=== PATIENT | female | born 1985 | race Caucasian/White ===

== ENCOUNTER → 2018-01-16 | Outpatient (CLI) | payer OTHER ==
--- NOTE | 2018-01-17 07:21 | US ---
EXAMINATION TYPE: US pelvis complete transvag DATE OF EXAM: 01/16/2018 COMPARISON: SEVERAL US'S 09/29/2014 CLINICAL HISTORY: R10.2 Pelvic pain. felt enlarged left ovary during pelvic TECHNIQUE: Transvaginal (TV) and Transabdominal (TA) . Transabdominal sonographic images of the pel vis were acquired. Transvaginal sonographic images were medically necessary to better assess the fol lowing anatomy: calcs seen near endometrium Date of LMP: 01/03/2018 EXAM MEASUREMENTS: Uterus: 10.3 x 4.1 x 6.6 cm Endometrial Stripe: 0.9 cm Right Ovary: 3.5 x 3.3 x 2.5 cm Left Ovary: 3.1 x 2.7 x 2.1 cm 1. Uterus: Anteverted there are some calcification seen in myometrium near endo as seen on prior e xams 2. Endometrium: wnl 3. Right Ovary: dominant follicle measures 1.9 x 1.7 x 1.9 cm. 4. Left Ovary: wnl 5. Bilateral Adnexa: wnl 6. Posterior cul-de-sac: no free fluid IMPRESSION: 1. Nonspecific myometrial calcifications. 2. Dominant right ovarian follicle.
== END | disposition home or self-care (01) ==
LOC: RADUSWWP 16:18
PROVIDERS: ATTEND Obstetrics & Gynecology
DX: N85.8 Other specified noninflammatory disorders of uterus (principal)
CPT/HCPCS: 76830; 76856

== ENCOUNTER → 2018-10-17 | Outpatient (CLI) | payer OTHER ==
--- NOTE | 2018-10-17 16:03 | XR ---
EXAMINATION TYPE: XR forearm RT, XR wrist complete RT, XR hand complete RT DATE OF EXAM: 10/17/2018 CLINICAL HISTORY: Right upper extremity pain radiating from shoulder to the third digit with numbness of the third digit on the right. TECHNIQUE: Two views of the right forearm are obtained. 3 views of the right hand and wrist were also obtained. Scaphoid view was also obtained. COMPARISON: None. FINDINGS: There is no acute fracture or dislocation seen in the right radius or ulna. The right elbow and wris t joints appear within normal limits. The overlying soft tissue appears within normal limits. There is no acute fracture/dislocation evident in the right hand. Flexion of the distal interphalange al joint slightly limits evaluation. The joint spaces in the right hand appear within normal limits. The overlying soft tissue appears unremarkable. There is no acute fracture/dislocation evident in the right wrist. The joint spaces in the right wri st appear within normal limits. The overlying soft tissue appears unremarkable. IMPRESSION: 1. No acute fracture or dislocation seen in the right radius or ulna. 2. No acute fracture or dislocation in the right wrist nor hand. Particularly the third digit is unre markable.
== END | disposition home or self-care (01) ==
LOC: RADXRMAIN 15:33
PROVIDERS: ATTEND Emergency Medicine
DX: S63.501A Unspecified sprain of right wrist, initial encounter (principal); S67.21XA Crushing injury of right hand, initial encounter

== ENCOUNTER → 2018-10-23 | Outpatient (CLI) | payer OTHER ==
--- NOTE | 2018-10-23 17:45 | XR ---
PROCEDURE: XR wrist complete RT - 4V DATE AND TIME: 10/23/2018 5:34 PM CLINICAL INDICATION: PHH; S63.501D TECHNIQUE: Department protocol COMPARISON: 10/17/2018 FINDINGS: There is no fracture or malalignment. The soft tissues are unremarkable. IMPRESSION: NO ACUTE PROCESS.
== END | disposition home or self-care (01) ==
LOC: RADXRMAIN 16:57
PROVIDERS: ATTEND Emergency Medicine
DX: S63.501D Unspecified sprain of right wrist, subsequent encounter (principal)

== ENCOUNTER → 2018-11-21 | Outpatient (CLI) | payer OTHER ==
--- NOTE | 2018-11-23 05:17 | FL ---
EXAMINATION TYPE: Right wrist fluoroscopic-guided arthrogram injection. DATE OF EXAM: 11/21/2018 HISTORY: 33-year-old female crush injury, limited range of motion and pain. PROCEDURES: 1. Right wrist fluoroscopy. 2. Right wrist arthrogram. TECHNIQUE: The procedure, risks, and alternatives, were discussed with the patient, who requested that umberto grissom The consent form was signed, and teach-back occurred. The site/side of the procedure was marked with a line with participation by the patient. The accompan frederick paperwork was verified for consistency. A directed history and physical exam was performed prior to the procedure. A critical pause was perfo rmed with assisting personnel just prior to the procedure, and the patient's identity was confirmed u sing 2 identifiers. Imaging guidance was utilized to select the precise skin entry point just prior to the procedure. The right wrist was prepped and draped in the usual sterile fashion and local 1% lidocaine anesthesia was instilled. Under fluoroscopic guidance, a 25 gauge needle was introduced into the dorsal radial scaphoid joint and appropriate needle tip position was confirmed after a small amount of contrast in jection. There is difficulty in accessing the joint space due to an exaggerated resistance to flexing the wrist. Approximately 2 mL of a mixture of Isovue-300 iodinated contrast, sterile saline, and Gadavist was in jected into the right wrist joint. The needle was then removed. The patient tolerated the procedure w ell. There was no immediate complication. After the procedure, the patient's condition was unchanged. Estimated blood loss was minimal. Patient was advised on routine postprocedure precautions and monitoring for signs of infection. IMPRESSION: Technically successful right wrist arthrogram injection for MRI. No immediate complication.
--- NOTE | 2018-11-24 22:23 | MR ---
EXAMINATION TYPE: MR wrist arthrogram RT w con DATE OF EXAM: 11/21/2018 COMPARISON: Radiographs 10/23/2018 HISTORY: 33-year-old female crush injury with pain and limited range of motion Technique: Multiplanar, multisequence images of the right wrist were obtained after intra-articular a dministration of a gadolinium mixture. Refer to arthrogram injection report of the same day for furth er details. FINDINGS: There is adequate contrast distention of the wrist joint with some decompression of contrast along th e medial aspect of the wrist. There is mild globular intermediate signal of the volar scapholunate ligament. No tyrone scapholunate lunate ligament tear is seen though minute contrast has made its way into the midcarpal compartment. The lunotriquetral ligament is intact. Overall cartilage is maintained without evidence for bony erosions. Multilocular ganglion cyst along the radial volar aspect of the hand proximal to the base of the seco nd metacarpal measuring 1.8 cm long by 4 mm wide and 5 mm AP dimension. This does not fill with contr ast. 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 The dorsal extensor and volar flexor tendons are ot herwise within normal limits. Some mild iatrogenic contrast extends along the second and third dorsal compartments. The bifid median nerve is normal caliber with cross-sectional area of 11.8 sq mm. There is some heterogeneous signal involving the dorsal radial ulnar ligament. The triangular fibroca rtilage otherwise remains intact. Distal radioulnar joint is intact. No abnormal contrast extension i nto the distal radioulnar joint. The visualized musculature and osseous structures are within normal limits. IMPRESSION: 1. There is some heterogeneous signal involving the volar portion of the scapholunate ligament sugges ting a mild sprain. 2. In addition, minute contrast has made its way to the mid carpal compartment. There may be a tiny p erforation in the proximal portion of the scapholunate ligament. No sizable tear of the proximal port ion or disruption of the dorsal portion of the ligament is seen. 3. Additional heterogeneous signal involving the dorsal radioulnar ligament suggests a mild sprain or partial tear. No other TFC tear or abnormal extension of contrast into the DRUJ. 4. Multilocular ganglion cyst along the radial volar aspect of the hand extending proximal to the bas e of the second metacarpal (1.8 x 0.4 x 0.5 cm). 5. 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
== END | disposition home or self-care (01) ==
LOC: RADFLMAIN 12:45
PROVIDERS: ATTEND Emergency Medicine
DX: M67.441 Ganglion, right hand (principal); S67.21XD Crushing injury of right hand, subsequent encounter
CPT/HCPCS: 25246; 73115; 73222; A9585; Q9967

== ENCOUNTER 2019-04-17 23:39 | Emergency (ER) | payer OTHER ==
[2019-04-17 23:59] VITALS: BP 128/64; PULSE 106; RESP 18; TEMP 98.1
[2019-04-18] MEDS ORDERED: ACET/COD 300 MG/30 MG STARTER PACK 6 TAB BTL PO STA (00:10)
[2019-04-18] MEDS ORDERED: LIDOCAINE 1% INJ 10MG/ML (20 ML MDV) SQ ONE (00:10)
--- NOTE | 2019-04-18 00:12 | ED ---
Wound/Laceration HPI - General Source: patient Mode of arrival: wheelchair Limitations: no limitations <Marychuy Wren - Last Filed: 04/18/19 02:04> <Xavier Batista - Last Filed: 04/18/19 06:16> - General Chief Complaint: Wound/Laceration Stated Complaint: Lac Lft Thigh Time Seen by Provider: 04/17/19 23:58 - History of Present Illness Initial Comments: 33-year-old female patient presents to the emergency department today for evaluation of laceration to the left thigh. Patient states that she cut her leg on a metal piece they were using a drywall. States that they were having difficulty getting the bleeding to stop soap presented here for further evaluation. Patient states her last tetanus vaccine was one year ago. Denies taking anything for pain. Symptoms. She denies any numbness or tingling to her extremity. Denies any other injuries. Patient denies any headache, neck pain, back pain, chest pain, shortness of breath, dizziness, weakness, abdominal pain, nausea, vomiting, or difficulties with bowel movements or urination. (Marychuy Wren) - Related Data Home Medications Medication Instructions Recorded Confirmed Hair, Skin And Nails 1 tab PO DAILY 02/02/16 02/02/16 Previous Rx's Medication Instructions Recorded Diazepam [Valium] 5 mg PO BID PRN #8 tab 02/03/16 Ibuprofen [Motrin] 800 mg PO Q8HR PRN #21 tab 02/03/16 Allergies Allergy/AdvReac Type Severity Reaction Status Date / Time Penicillins Allergy Severe Anaphylaxis Verified 04/17/19 23:59 amoxicillin Allergy Rash/Hives Verified 04/17/19 23:59 Review of Systems ROS Other: All systems not noted in ROS Statement are negative. <Marychuy Wren - Last Filed: 04/18/19 02:04> ROS Other: All systems not noted in ROS Statement are negative. <Xavier Batista - Last Filed: 04/18/19 06:16> ROS Statement: Those systems with pertinent positive or pertinent negative responses have been documented in the HPI. Past Medical History Past Medical History: No Reported History Additional Past Medical History / Comment(s): cervival cancer, History of Any Multi-Drug Resistant Organisms: None Reported Past Surgical History: Section Additional Past Surgical History / Comment(s): D&C, 1 , Past Psychological History: ADD/ADHD, Anxiety, Depression Smoking Status: Current every day smoker Past Alcohol Use History: Occasional Past Drug Use History: Marijuana <Marychuy Wren M - Last Filed: 04/18/19 02:04> General Exam Limitations: no limitations General appearance: alert, in no apparent distress, other (This is a well-dev eloped, well-nourished adult female patient in no acute distress. Vital signs upon presentation are temperature 98.1F, pulse 106, respirations 18, blood pressure 128/64, pulse ox 95% on room air.) Eye exam: Present: normal appearance, PERRL, EOMI. Absent: scleral icterus, conjunctival injection, periorbital swelling ENT exam: Present: normal exam, normal oropharynx, mucous membranes moist Respiratory exam: Present: normal lung sounds bilaterally. Absent: respiratory distress, wheezes, rales, rhonchi, stridor Cardiovascular Exam: Present: regular rate, normal rhythm, normal heart sounds. Absent: systolic murmur, diastolic murmur, rubs, gallop, clicks Extremities exam: Present: full ROM, normal capillary refill, other (There is a 4cm laceration to the left lateral thigh. There is active bleeding and surrounding hematoma. skin is otherwise pink, warm, dry. Cap refills less than 3 seconds. Pedal and posttibial pulses are 2+ and equal bilaterally.). Absent: tenderness, pedal edema, joint swelling, calf tenderness Neurological exam: Present: alert, oriented X3, CN II-XII intact Psychiatric exam: Present: normal affect, normal mood Skin exam: Present: warm, dry, intact, normal color. Absent: rash <Marychuy Wren M - Last Filed: 04/18/19 02:04> Course Vital Signs 04/17/19 23:54 Temperature 98.1 F Pulse Rate 106 H Respiratory 18 Rate Blood Pressure 128/64 O2 Sat by Pulse 95 Oximetry Procedures - Laceration Laceration #1 Consent Obtained: verbal consent Indication: laceration Site: lower extremity Size (cm): 4 Description: linear Depth: simple, single layer (exposed adipose tissue) Anesthetic Used: lidocaine 1%, with epi Anesthesia Technique: local infiltration Amount (mls): 10 Pre-repair: wound explored Type of Sutures: nylon, vicryl Size of Sutures: 4-0 (4 nylon, 2 vicryl) Number of Sutures: 6 Technique: simple, interrupted Patient Tolerated Procedure: well, no complications <Marychuy Wren - Last Filed: 04/18/19 02:04> Medical Decision Making <Marychuy Wren - Last Filed: 04/18/19 02:04> <Xavier Batista - Last Filed: 04/18/19 06:16> - Medical Decision Making 33-year-old female patient presents to the emergency department today for evaluation of left lateral thigh laceration. Physical examination did reveal a deep laceration through the adipose tissue to the left thigh. There is active bleeding. There is 12 and of hematoma. Lidocaine with epinephrine was injected to slow bleeding. Did perform double layer closure of the wound. Was able to get bleeding under control. Pressure dressing was applied. She was discharged home to follow-up with her primary care physician for recheck in one to 2 days. She is instructed to return in 10-14 days for suture removal. She was educated regarding signs or symptoms of infection. Return parameters discussed in detail. They verbalize understanding and agree with this plan for (Marychuy Wren) I saw this patient in conjunction with the physician glass ribbon machine operator assistant. I performed independent history and physical exam. Agree with case management. (Xavier Batista) Disposition Is patient prescribed a controlled substance at d/c from ED?: No <Marychuy Wren - Last Filed: 04/18/19 02:04> <Xavier Batista - Last Filed: 04/18/19 06:16> Clinical Impression: Laceration of left thigh Disposition: HOME SELF-CARE Condition: Good Instructions (If sedation given, give patient instructions): Care For Your Stitches (ED), Laceration (ED), Hematoma (ED) Additional Instructions: Keep wound clean and dry. Cleanse twice daily with warm water and antibacterial soap. Return in 10-14 days to have the stitches removed. Monitor for signs or symptoms of infection including but not limited to redness, swelling, drainage of pus, fever, or chills. Have wound rechecked by her primary care physician for recheck in 1-2 days. Return for any other new, worsening, or concerning symptoms. Referrals: None,Stated [Primary Care Provider] - 1-2 days
[2019-04-18] MEDS ORDERED: LIDOCAINE 1%-EPI 1:100,000 20 ML VIAL SQ STA (00:34)
== END 2019-04-18 01:05 | disposition home or self-care (01) ==
LOC: EC 23:39
DX: S71.112A Laceration without foreign body, left thigh, initial encounter (principal); F17.200 Nicotine dependence, unspecified, uncomplicated; Z88.0 Allergy status to penicillin; Z85.41 Personal history of malignant neoplasm of cervix uteri; W26.8XXA Contact with other sharp object(s), not elsewhere classified, initial encounter
CPT/HCPCS: 12002; 99282; J2001

== ENCOUNTER 2019-12-12 13:05 | Emergency (ER) | payer OTHER ==
[2019-12-12 13:11] VITALS: RESP 18; TEMP 98.3
--- NOTE | 2019-12-12 13:43 | ED ---
General Adult HPI - General Chief complaint: Neuro Symptoms/Deficit Stated complaint: ENT Time Seen by Provider: 12/12/19 13:30 Source: patient, RN notes reviewed Mode of arrival: ambulatory Limitations: no limitations - History of Present Illness Initial comments: Patient is a pleasant 34-year-old female presenting to the emergency Department with complaints of right facial weakness. Patient started with paresthesias 4 days ago. Weakness started 3 days ago. Weakness has progressed since that time. Weakness is noticed of the right side of the face only. Patient does have difficulty moving her forehead as well as well as closing her eye. Patient does have some decreased sensation of her right arm however states this is chronic from a work injury 1 year ago. Decreased sensation of the right arm is unchanged. Patient does not notice any extremity weakness. No speech problems. No visual changes. - Related Data Previous Rx's Medication Instructions Recorded predniSONE [Deltasone] 3 tab PO DAILY #21 tab 12/12/19 valACYclovir HCL [Valtrex] 1,000 mg PO TID #21 tablet 12/12/19 Allergies Allergy/AdvReac Type Severity Reaction Status Date / Time Penicillins Allergy Severe Anaphylaxis Verified 12/12/19 14:00 amoxicillin Allergy Rash/Hives Verified 12/12/19 14:00 Review of Systems ROS Statement: Those systems with pertinent positive or pertinent negative responses have been documented in the HPI. ROS Other: All systems not noted in ROS Statement are negative. Constitutional: Denies: fever Eyes: Denies: eye pain ENT: Denies: ear pain Respiratory: Denies: cough Cardiovascular: Denies: chest pain Endocrine: Denies: fatigue Gastrointestinal: Denies: abdominal pain Genitourinary: Denies: dysuria Musculoskeletal: Denies: back pain Skin: Denies: rash Neurological: Reports: as per HPI. Denies: headache, confusion, abnormal gait Past Medical History Past Medical History: No Reported History Additional Past Medical History / Comment(s): cervival cancer, History of Any Multi-Drug Resistant Organisms: None Reported Past Surgical History: Section Additional Past Surgical History / Comment(s): D&C, 1 , Past Psychological History: ADD/ADHD, Anxiety, Depression Smoking Status: Current some day smoker Past Alcohol Use History: Occasional Past Drug Use History: Marijuana General Exam Limitations: no limitations General appearance: alert, in no apparent distress Head exam: Present: normocephalic Eye exam: Present: normal appearance, PERRL, EOMI ENT exam: Present: normal oropharynx Neck exam: Present: normal inspection Respiratory exam: Present: normal lung sounds bilaterally Cardiovascular Exam: Present: regular rate, normal rhythm GI/Abdominal exam: Present: soft. Absent: tenderness Extremities exam: Present: normal inspection Neurological exam: Present: alert, oriented X3, CN II-XII intact (Except for right-sided facial weakness that includes the forehead) Expanded Neurological exam: Present: protecting the airway Speech: Present: fluid speech Cranial nerves: EOM's Intact: Normal Sensory exam: Upper Extremity Light Touch: Abnormal Right (Patient states chronic), Lower Extremity Light Touch: Normal Motor strength exam: RUE: 5, LUE: 5, RLE: 5, LLE: 5 Eye Response: (4) open spontaneously Motor Response: (6) obeys commands Verbal Response: (5) oriented Psychiatric exam: Present: normal affect, normal mood Skin exam: Present: normal color Course Vital Signs 12/12/19 13:07 Temperature 98.3 F Pulse Rate 71 Respiratory 18 Rate Blood Pressure 109/63 O2 Sat by Pulse 99 Oximetry Medical Decision Making - Medical Decision Making Patient reevaluated and updated. - Radiology Data Radiology results: report reviewed (Computed tomography scan of the brain reveals no acute process) Disposition Clinical Impression: Acosta's palsy Disposition: HOME SELF-CARE Condition: Stable Instructions (If sedation given, give patient instructions): Acosta Palsy (ED) Additional Instructions: Please follow-up with primary care physician in the next couple days for recheck. Use [id number] Lacri-Lube at least 4 times daily and before bedtime. Please tape your eye shut prior to bedtime. Prescriptions have been sent to [facility] on . Return for other areas of weakness, worsening sympt oms or other concerns. Prescriptions: predniSONE [Deltasone] 3 tab PO DAILY #21 tab valACYclovir HCL [Valtrex] 1,000 mg PO TID #21 tablet Is patient prescribed a controlled substance at d/c from ED?: No Referrals: Pedro Luis Travis MD [STAFF PHYSICIAN] - 1-2 days Time of Disposition: 14:31
--- NOTE | 2019-12-12 13:56 | CT ---
EXAMINATION TYPE: CT brain wo con DATE OF EXAM: 12/12/2019 COMPARISON: None HISTORY: Rt side facial weakness CT DLP: 1023.[address] of the brain was performed. The ventricles, basal cisterns and sulci overlying the cerebral convexities demonstrate a normal appe arance. There is no evidence for intracranial hemorrhage or sulcal effacement. No mass effects are seen. Osseous calvarium is intact. If symptoms persist consider MRI as clinically warranted. IMPRESSION: 1. No acute intracranial process is seen at this time.
[2019-12-12 14:38] VITALS: BP 115/62; PULSE 73
== END 2019-12-12 14:37 | disposition home or self-care (01) ==
LOC: EC 13:05
DX: G51.0 Bell's palsy (principal); F17.200 Nicotine dependence, unspecified, uncomplicated; Z88.0 Allergy status to penicillin; Z85.41 Personal history of malignant neoplasm of cervix uteri
CPT/HCPCS: 70450; 99284

== ENCOUNTER 2021-11-20 21:37 | Emergency (ER) | payer OTHER ==
[2021-11-20 21:53] VITALS: BP 122/78; PULSE 93; RESP 20; TEMP 98.3
--- NOTE | 2021-11-20 23:36 | ED ---
ENT HPI - General Chief complaint: Dental/Oral Stated complaint: jaw pain and swelling Time Seen by Provider: 11/20/21 23:20 Source: patient, family, RN notes reviewed, old records reviewed Mode of arrival: ambulatory - History of Present Illness Initial comments: This is a 36-year-old female to the emergency room for evaluation patient presents today for severe dental pain. Patient has history of dental disease and dental caries. With full retainer that she has those permanent. Not is having dental disease. Dental disease indicate. Ration states the pain is severe currently and make it even difficult to swallow and eat. Patient has no other complaints no fevers MD complaint: tooth pain -: days(s) Location: tooth # Severity: moderate (Front lower teeth) Severity scale (1-10): 7 Quality: aching Consistency: constant Improves with: none Worsens with: swallowing Context- Dental: history of dental caries (Patient has dental disease with permanent retainer) Associated Symptoms: gum swelling, toothache, pain with swallowing, sore throat - Related Data Previous Rx's Medication Instructions Recorded predniSONE [Deltasone] 3 tab PO DAILY #21 tab 12/12/19 valACYclovir HCL [Valtrex] 1,000 mg PO TID #21 tablet 12/12/19 Ciprofloxacin HCl [Cipro] 500 mg PO BID 10 Days #20 tab 11/21/21 Allergies Allergy/AdvReac Type Severity Reaction Status Date / Time Penicillins Allergy Severe Anaphylaxis Verified 11/20/21 21:53 amoxicillin Allergy Rash/Hives Verified 11/20/21 21:53 Review of Systems ROS Statement: Those systems with pertinent positive or pertinent negative responses have been documented in the HPI. ROS Other: All systems not noted in ROS Statement are negative. Past Medical History Past Medical History: No Reported History Additional Past Medical History / Comment(s): cervival cancer, History of Any Multi-Drug Resistant Organisms: None Reported Past Surgical History: Section Additional Past Surgical History / Comment(s): D&C, 1 , Past Psychological History: ADD/ADHD, Anxiety, Depression Smoking Status: Current some day smoker Past Alcohol Use History: Occasional Past Drug Use History: Marijuana General Exam General appearance: alert, in no apparent distress Head exam: Present: atraumatic, normocephalic, normal inspection Eye exam: Present: normal appearance, PERRL, EOMI. Absent: scleral icterus, conjunctival injection, periorbital swelling ENT exam: Present: normal exam, mucous membranes moist Neck exam: Present: normal inspection. Absent: tenderness, meningismus, lymphadenopathy Respiratory exam: Present: normal lung sounds bilaterally. Absent: respiratory distress, wheezes, rales, rhonchi, stridor Cardiovascular Exam: Present: regular rate, normal rhythm, normal heart sounds. Absent: systolic murmur, diastolic murmur, rubs, gallop, clicks GI/Abdominal exam: Present: soft, normal bowel sounds. Absent: distended, tenderness, guarding, rebound, rigid Extremities exam: Present: normal inspection, full ROM, normal capillary refill. Absent: tenderness, pedal edema, joint swelling, calf tenderness Back exam: Present: normal inspection Neurological exam: Present: alert, oriented X3, CN II-XII intact Psychiatric exam: Present: normal affect, normal mood Skin exam: Present: warm, dry, intact, normal color. Absent: rash Course Vital Signs 11/20/21 21:49 Temperature 98.3 F Pulse Rate 93 Respiratory 20 Rate Blood Pressure 122/78 O2 Sat by Pulse 96 Oximetry - Reevaluation(s) Reevaluation #1: 11/21/21 00:42 Medical record is reviewed Reevaluation #2: 11/21/21 00:42 Patient's pain is controlled Reevaluation #3: 11/21/21 00:42 Patient symptoms are improved from prior Patient informed results and questions answered Medical Decision Making - Medical Decision Making 36 female to the emergency department for evaluation of severe tooth pain, related to permanent retainer. Patient we discharged home on Biaxin pain control continue follow-up with her dentist Disposition Clinical Impression: Gingivitis, Dental abscess, Toothache Disposition: HOME SELF-CARE Condition: Good Instructions (If sedation given, give patient instructions): Toothache (ED) Prescriptions: Ciprofloxacin HCl [Cipro] 500 mg PO BID 10 Days #20 tab Is patient prescribed a controlled substance at d/c from ED?: No Referrals: None,Stated [Primary Care Provider] - 1-2 days Time of Disposition: 00:45
[2021-11-21] MEDS ORDERED: HYDROcodone/APAP 5-325MG 1 EACH TAB PO STA (00:38)
[2021-11-21] MEDS ORDERED: CLINDAMYCIN 150 MG CAP PO STA (00:38)
[2021-11-21] MEDS ORDERED: IBUPROFEN 600 MG STARTER PACK 4 TAB BTL PO STA (00:39)
[2021-11-21] MEDS ORDERED: traMADol 50 MG STARTER PACK 3 TAB BTL PO STA (00:39)
[2021-11-21] MEDS ORDERED: DEXAMETHASONE SOD PHOSPHATE 10 MG/ML 1 ML VIAL IM STA (00:41)
== END 2021-11-21 01:01 | disposition home or self-care (01) ==
LOC: EC 21:37
DX: K04.7 Periapical abscess without sinus (principal); K05.10 Chronic gingivitis, plaque induced; F17.200 Nicotine dependence, unspecified, uncomplicated; Z88.0 Allergy status to penicillin
CPT/HCPCS: 99283; 96372; J1100

== ENCOUNTER 2021-12-13 11:13 | Emergency (ER) | payer OTHER ==
[2021-12-13 11:41] VITALS: BP 110/72; PULSE 77; RESP 16; TEMP 98.2
--- NOTE | 2021-12-13 12:22 | ED ---
URI HPI - General Chief Complaint: Upper Respiratory Infection Stated Complaint: Covid test,SOB, loss of taste & smell Time Seen by Provider: 12/13/21 11:47 Source: patient, RN notes reviewed Mode of arrival: ambulatory Limitations: no limitations - History of Present Illness Initial Comments: 36 show female presents emergency Department with chief complaint of cough and cold like symptoms patient states that started last 24 hours she states her boyfriend was sick and not she has current symptoms. Patient states she also states, etc. cough, scratchy sore throat, mild nasal congestion. Patient went of bodyaches no reported fever denies any stiff a past medical history doesn't she is a daily smoker. - Related Data Previous Rx's Medication Instructions Recorded predniSONE [Deltasone] 3 tab PO DAILY #21 tab 12/12/19 valACYclovir HCL [Valtrex] 1,000 mg PO TID #21 tablet 12/12/19 Ciprofloxacin HCl [Cipro] 500 mg PO BID 10 Days #20 tab 11/21/21 Allergies Allergy/AdvReac Type Severity Reaction Status Date / Time Penicillins Allergy Severe Anaphylaxis Verified 12/13/21 11:41 amoxicillin Allergy Rash/Hives Verified 12/13/21 11:41 Review of Systems ROS Statement: Those systems with pertinent positive or pertinent negative responses have been documented in the HPI. ROS Other: All systems not noted in ROS Statement are negative. Past Medical History Past Medical History: No Reported History Additional Past Medical History / Comment(s): cervival cancer, History of Any Multi-Drug Resistant Organisms: None Reported Past Surgical History: Section Additional Past Surgical History / Comment(s): D&C, 1 , Past Psychological History: ADD/ADHD, Anxiety, Depression Smoking Status: Current some day smoker Past Alcohol Use History: Occasional Past Drug Use History: Marijuana General Exam Limitations: no limitations General appearance: alert, in no apparent distress Head exam: Present: atraumatic, normocephalic, normal inspection Eye exam: Present: normal appearance, PERRL, EOMI. Absent: scleral icterus, conjunctival injection, periorbital swelling ENT exam: Present: normal exam, normal oropharynx, mucous membranes moist, TM's normal bilaterally Neck exam: Present: normal inspection, full ROM. Absent: tenderness, meningismus, lymphadenopathy Respiratory exam: Present: normal lung sounds bilaterally. Absent: respiratory distress, wheezes, rales, rhonchi, stridor Cardiovascular Exam: Present: regular rate, normal rhythm, normal heart sounds. Absent: systolic murmur, diastolic murmur, rubs, gallop, clicks GI/Abdominal exam: Present: soft, normal bowel sounds. Absent: distended, tenderness, guarding, rebound, rigid Course Vital Signs 12/13/21 11:38 Temperature 98.2 F Pulse Rate 77 Respiratory 16 Rate Blood Pressure 110/72 O2 Sat by Pulse 100 Oximetry Medical Decision Making - Medical Decision Making 36-year-old female presented for upper respiratory symptoms COVID-19 is negative. Patient's no signs of distress. Symptoms started within last 24 hour s. Patient will be discharged in stable condition return parameters were discussed. - Lab Data Lab Results 12/13/21 Range/Units 12:04 Coronavirus (PCR) Not Detected (Not Detectd) Disposition Clinical Impression: Upper respiratory tract infection Disposition: HOME SELF-CARE Condition: Stable Instructions (If sedation given, give patient instructions): Upper Respiratory Infection (ED) Additional Instructions: Please return to the Emergency Department if symptoms worsen or any other concerns. Is patient prescribed a controlled substance at d/c from ED?: No Referrals: None,Stated [Primary Care Provider] - 1-2 days Time of Disposition: 13:04
== END 2021-12-13 13:35 | disposition home or self-care (01) ==
LOC: EC 11:13
DX: J06.9 Acute upper respiratory infection, unspecified (principal); F17.200 Nicotine dependence, unspecified, uncomplicated; F90.9 Attention-deficit hyperactivity disorder, unspecified type; Z88.0 Allergy status to penicillin; Z88.1 Allergy status to other antibiotic agents; Z20.822 Contact with and (suspected) exposure to COVID-19
CPT/HCPCS: 87635; 99284

== ENCOUNTER 2023-09-03 20:38 | Emergency (ER) | payer OTHER ==
[2023-09-03 21:01] VITALS: TEMP 97.9
[2023-09-03] MEDS: methylPREDNISolone SOD SUCCI 125 MG/2 ML VIAL IM ONE (21:39)
--- NOTE | 2023-09-03 21:56 | XR ---
EXAMINATION TYPE: XR chest 2V DATE OF EXAM: 09/03/2023 9:50 PM CLINICAL INDICATION:Female, 38 years old with history of cough; [facility] COMPARISON: Chest radiographs from 02/03/2016 TECHNIQUE: XR chest 2V Frontal and lateral views of the chest. FINDINGS: Lungs/Pleura: Right lower lobe airspace opacities. There is no evidence of pleural effusion, left foc al consolidation, or pneumothorax. Pulmonary vascularity: Unremarkable. Heart/mediastinum: Cardiomediastinal silhouette is unremarkable. Musculoskeletal: No acute osseous pathology. Other findings: None Lines/Tubes: IMPRESSION: Right lower lobe airspace opacities correlate for pneumonia.
--- NOTE | 2023-09-03 23:06 | ED ---
General Adult HPI - General Chief complaint: Upper Respiratory Infection Stated complaint: Fever, Difficulty Breathing, Congestion Time Seen by Provider: 09/03/23 21:20 Source: patient, RN notes reviewed, old records reviewed Mode of arrival: ambulatory Limitations: no limitations - History of Present Illness Initial comments: Patient is a 38-year-old female with past medical history remarkable for smoking who presents emergency department complaining of cough, congestion since Monday. Has productive cough of a thick white sputum. No fevers. No nausea or vomiting. No diarrhea. Symptoms have been ongoing for the last 5 days. Has not been smoking over that period of time. Presents for further evaluation at this time. No history of asthma, COPD. Denies chest pain. Denies any abdominal pain, nausea, vomiting. - Related Data Previous Rx's Medication Instructions Recorded predniSONE [Deltasone] 3 tab PO DAILY #21 tab 12/12/19 valACYclovir HCL [Valtrex] 1,000 mg PO TID #21 tablet 12/12/19 Ciprofloxacin HCl [Cipro] 500 mg PO BID 10 Days #20 tab 11/21/21 Albuterol Inhaler [Ventolin Hfa 1 puff INHALATION QID #8 gm 09/03/23 Inhaler] Azithromycin [Zithromax] 250 mg PO DAILY 4 Days #4 tab 09/03/23 predniSONE [Deltasone] 40 mg PO DAILY 5 Days #10 tab 09/03/23 Allergies Allergy/AdvReac Type Severity Reaction Status Date / Time Penicillins Allergy Severe Anaphylaxis Verified 09/03/23 21:01 amoxicillin Allergy Rash/Hives Verified 09/03/23 21:01 Review of Systems ROS Statement: Those systems with pertinent positive or pertinent negative responses have been documented in the HPI. Review of Systems: CONST: Denies fever EYES: Denies blurry vision ENT: Endorses nasal congestion C/V: Denies Chest pain RESP: Endorses cough GI: Denies abdominal pain : Denies dysuria SKIN: Denies rash. MSK: Denies joint pain. NEURO: Denies headache ROS Other: All systems not noted in ROS Statement are negative. Past Medical History Past Medical History: No Reported History Additional Past Medical History / Comment(s): cervival cancer, History of Any Multi-Drug Resistant Organisms: None Reported Past Surgical History: Section Additional Past Surgical History / Comment(s): D&C, 1 , Past Psychological History: ADD/ADHD, Anxiety, Depression Smoking Status: Current some day smoker Past Alcohol Use History: Occasional Past Drug Use History: Marijuana General Exam - General Exam Comments Initial Comments: General: Appears in no acute distress. HEAD: Normal with no signs of head trauma. EYES: PERRLA, EOMI, conjunctiva normal, no discharge. ENT: Hearing grossly intact, normal oropharynx. RESPIRATORY: Mild end expiratory wheezing. No significant hypoxia. No increased work of breathing. C/V: Regular rate and rhythm. S1 and S2 auscultated, peripheral pulses 2+ and intact throughout ABD: Abd is soft, nontender, nondistended EXT: no obvious deformity SKIN: No rashes or lesions observed on exposed skin. NEURO: Alert and oriented x 4. Limitations: no limitations Course Vital Signs 09/03/23 09/03/23 09/03/23 20:57 23:18 23:30 Temperature 97.9 F Pulse Rate 88 76 75 Respiratory 16 18 Rate Blood Pressure 118/77 119/79 O2 Sat by Pulse 96 97 Oximetry 09/03/23 23:35 Temperature Pulse Rate 77 Respiratory Rate Blood Pressure O2 Sat by Pulse Oximetry Medical Decision Making - Medical Decision Making Was pt. sent in by a medical professional or institution (, PA, DISABILITY EXAMINER, urgent care, hospital, or prison...) When possible be specific @ -No Did you speak to anyone other than the patient for history (EMS, parent, family, police, friend...)? What history was obtained from this source @ -No Did you review nursing and triage notes (agree or disagree)? Why? @ -I reviewed and agree with nursing and triage notes Were old charts reviewed (outside hosp., previous admission, EMS record, old EKG, old radiological studies, urgent care reports/EKG's, prison records)? Report findings @ -No old charts were reviewed Differential Diagnosis (chest pain, altered mental status, abdominal pain women, abdominal pain men, vaginal bleeding, weakness, fever, dyspnea, syncope, headache, dizziness, GI bleed, back pain, seizure, CVA, palpatations, mental health, musculoskeletal)? @ -COVID, flu, RSV, pneumonia, reactive airway disease. This list is not all inclusive. EKG interpreted by me (3pts min.). @ -None done X-rays interpreted by me (1pt min.). @ -Developing right-sided pneumonia. CT interpreted by me (1pt min.). @ -None done U/S interpreted by me (1pt. min.). @ -None done What testing was considered but not performed or refused? (CT, X-rays, U/S, labs)? Why? @ -None What meds were considered but not given or refused? Why? @ -None Did you discuss the management of the patient with other professionals (professionals i.e. , PA, DISABILITY EXAMINER, lab, RT, psych nurse, social director, bindery leadperson, teacher, accounting officer, case work aide)? Give summary @ -No Was smoking cessation discussed for >3mins.? @ -Yes. Was critical care preformed (if so, how long)? @ -No Were there social determinants of health that impacted care today? How? (Homelessness, low income, unemployed, alcoholism, drug addiction, transportation, low edu. Level, literacy, decrease access to med. care, shelter, rehab)? @ -No Was there de-escalation of care discussed even if they declined (Discuss DNR or withdrawal of care, Hospice)? DNR status @ -No What co-morbidities impacted this encounter? (DM, HTN, Smoking, COPD, CAD, Cancer, CVA, ARF, Chemo, Hep., AIDS, mental health diagnosis, sleep apnea, morbid obesity)? @ -Nicotine dependence Was patient admitted / discharged? Hospital course, mention meds given and ro gerson, prescriptions, significant lab abnormalities, going to OR and other pertinent info. @ -Based on the patient's presentation and physical exam, patient presents emergency department complaining of productive cough, shortness of breath. Appears to be a having reactive airway disease and likely undiagnosed COPD. Will obtain viral swabs as well as chest x-ray. She will be symptomatically treat with DuoNeb, steroids, and reevaluated. Patient in agreement this plan. Vital signs within acceptable limits. Viral swabs negative. Chest x-ray shows no evidence of pneumonia. I did discuss results of the workup with the patient. She is feeling improved at this time. Vital signs remained within acceptable limits. She will be started on antibiotics for pneumonia. We did discuss smoking cessation. Patient in agreement with this plan. Strict return precautions discussed. I will provide the patient with a prescription for prednisone, albuterol inhaler, and azithromycin. I instructed the patient to follow up with their PCP in the next 1-3 days. I provided contact information for follow up with [facility]. I explained that the patient should return to the emergency department if they experience any worsening symptoms. Strict return precautions were discussed with the patient. The patient expressed understanding of these instructions. I answered all questions that the patient had. The patient was discharged home in good condition with their prescriptions and follow up information. Undiagnosed new problem with uncertain prognosis? @ -No Drug Therapy requiring intensive monitoring for toxicity (Heparin, Nitro, Insulin, Cardizem)? @ -No Were any procedures done? @ -No Diagnosis/symptom? @ -Nicotine dependence, reactive airway disease, pneumonia Acute, or Chronic, or Acute on Chronic? @ -Acute Uncomplicated (without systemic symptoms) or Complicated (systemic symptoms)? @ -Complicated Side effects of treatment? @ -No Exacerbation, Progression, or Severe Exacerbation? @ -No Poses a threat to life or bodily function? How? (Chest pain, [place], [place], pneumonia, PE, COPD, DKA, ARF, appy, cholecystitis, CVA, Diverticulitis, Homicidal, Suicidal, threat to staff... and all critical care pts) @ -Unlikely - Lab Data Lab Results 09/03/23 Range/Units 21:39 Influenza Type A (PCR) Not Detected (Not Detectd) Influenza Type B (PCR) Not Detected (Not Detectd) RSV (PCR) Not Detected (Not Detectd) SARS-CoV-2 (PCR) Not Detected (Not Detectd) Disposition Clinical Impression: Pneumonia, Reactive airway disease, Nicotine dependence Disposition: HOME SELF-CARE Condition: Good Instructions (If sedation given, give patient instructions): Community Acquired Pneumonia (ED) Prescriptions: predniSONE [Deltasone] 40 mg PO DAILY 5 Days #10 tab Albuterol Inhaler [Ventolin Hfa Inhaler] 1 puff INHALATION QID #8 gm Azithromycin [Zithromax] 250 mg PO DAILY 4 Days #4 tab Is patient prescribed a controlled substance at d/c from ED?: No Referrals: None,Stated [Primary Care Provider] - 1-2 days Forms: [facility] Time of Disposition: 23:00
[2023-09-03] MEDS: AZITHROMYCIN 500 MG TAB PO STA (23:16)
[2023-09-03 23:19] VITALS: BP 119/79; RESP 18
[2023-09-03] MEDS: IPRATROPIUM-ALBUTEROL 3 ML NEB INHALATION STA (23:30)
[2023-09-03 23:49] VITALS: PULSE 77
== END 2023-09-03 23:36 | disposition home or self-care (01) ==
LOC: EC 20:38
DX: J18.9 Pneumonia, unspecified organism (principal); J45.909 Unspecified asthma, uncomplicated; F17.200 Nicotine dependence, unspecified, uncomplicated; Z88.0 Allergy status to penicillin
CPT/HCPCS: 94640; 87636; 71046; 99406; 99285; 96372; J2919

== ENCOUNTER 2024-05-07 21:47 | Emergency (ER) | payer SELFPAY ==
[2024-05-07 21:55] VITALS: TEMP 98
[2024-05-08] MEDS: PROPARACAINE 0.5% OPHTH DROPS 15 ML BTL RIGHT EYE STA (00:54)
[2024-05-08] MEDS: FLUORESCEIN STRIPS 1 MG STRIP RIGHT EYE ONE (00:54)
--- NOTE | 2024-05-08 00:57 | ED ---
Eye Problem HPI - General Chief complaint: Eye Problems Stated complaint: R Eye Irritation Time Seen by Provider: 05/07/24 23:28 Source: patient Mode of arrival: ambulatory Limitations: no limitations - History of Present Illness Initial comments: 39-year-old female presenting with chief complaint of right arm irritation. Patient reports that prior to this she was helping to fix the dryer in their home and was around a lot of dust. She felt like she had something in her eye and went to rinse it out and felt much better afterwards. Later on when she woke up she had foreign body sensation, redness, dry eye, and burning. She does wear contact lenses. No vision loss. No discharge. No periorbital swelling. No injury or trauma. No fever. - Related Data Previous Rx's Medication Instructions Recorded predniSONE [Deltasone] 3 tab PO DAILY #21 tab 12/12/19 valACYclovir HCL [Valtrex] 1,000 mg PO TID #21 tablet 12/12/19 Ciprofloxacin HCl [Cipro] 500 mg PO BID 10 Days #20 tab 11/21/21 Albuterol Inhaler [Ventolin Hfa 1 puff INHALATION QID #8 gm 09/03/23 Inhaler] Azithromycin [Zithromax] 250 mg PO DAILY 4 Days #4 tab 09/03/23 predniSONE [Deltasone] 40 mg PO DAILY 5 Days #10 tab 09/03/23 Allergies Allergy/AdvReac Type Severity Reaction Status Date / Time Penicillins Allergy Severe Anaphylaxis Verified 05/07/24 21:55 amoxicillin Allergy Rash/Hives Verified 05/07/24 21:55 Review of Systems ROS Statement: Those systems with pertinent positive or pertinent negative responses have been documented in the HPI. ROS Other: All systems not noted in ROS Statement are negative. Past Medical History Past Medical History: No Reported History Additional Past Medical History / Comment(s): cervival cancer, History of Any Multi-Drug Resistant Organisms: None Reported Past Surgical History: Section Additional Past Surgical History / Comment(s): D&C, 1 , Past Psychological History: ADD/ADHD, Anxiety, Depression Smoking Status: Current every day smoker Past Alcohol Use History: Occasional Past Drug Use History: Marijuana General Exam Limitations: no limitations General appearance: alert, in no apparent distress Head exam: Present: atraumatic, normocephalic, normal inspection Eye exam: Present: PERRL, EOMI, conjunctival injection. Absent: periorbital swelling Pupils: Present: normal accommodation Expanded Eyelids: Normal Inspection: Bilateral Pupils: Regular, Round: Bilateral, Reactive: Bilateral Sclera/Conjunctival: Injection: Right (Some linear uptake is seen on fluorescein exam) Neck exam: Present: normal inspection. Absent: meningismus Respiratory exam: Absent: respiratory distress Cardiovascular Exam: Present: regular rate Neurological exam: Present: alert, oriented X3 Psychiatric exam: Present: normal affect, normal mood Skin exam: Present: warm, dry, normal color Course Vital Signs 05/07/24 05/08/24 21:53 00:55 Temperature 98 F Pulse Rate 64 68 Respiratory 18 16 Rate Blood Pressure 121/75 100/68 O2 Sat by Pulse 98 97 Oximetry Medical Decision Making - Medical Decision Making Was pt. sent in by a medical professional or institution (, PA, PROMOS EXECUTIVE PRODUCER, urgent care, hospital, or [place] health care facility...) When possible be specific @ -No Did you speak to anyone other than the patient for history (EMS, parent, family, police, friend...)? What history was obtained from this source @ -No Did you review nursing and triage notes (agree or disagree)? Why? @ -I reviewed and agree with nursing and triage notes Were old charts reviewed (outside hosp., previous admission, EMS record, old EKG, old radiological studies, urgent care reports/EKG's, [place] health [place] facility records)? Report findings @ -No old charts were reviewed Differential Diagnosis (chest pain, altered mental status, abdominal pain women, abdominal pain men, vaginal bleeding, weakness, fever, dyspnea, syncope, headache, dizziness, GI bleed, back pain, seizure, CVA, palpatations, mental health, musculoskeletal)? @ -Differential includes corneal abrasion, foreign body, corneal ulcer, conjunctivitis, acute angle-closure glaucoma, not an all-inclusive list EKG interpreted by me (3pts min.). @ -As above X-rays interpreted by me (1pt min.). @ -None done CT interpreted by me (1pt min.). @ -None done U/S interpreted by me (1pt. min.). @ -None done What testing was considered but not performed or refused? (CT, X-rays, U/S, labs)? Why? @ -None What meds were considered but not given or refused? Why? @ -None Did you discuss the management of the patient with other professionals (professionals i.e. DrJayashree, PA, PROMOS EXECUTIVE PRODUCER, lab, RT, psych nurse, licensed clinical social worker, psychological tests sales agent, teacher, horticultural technical officer, binder caser)? Give summary @ -No Was smoking cessation discussed for >3mins.? @ -No Was critical care preformed (if so, how long)? @ -No Were there social determinants of health that impacted care today? How? (Homelessness, low income, unemployed, alcoholism, drug addiction, transportation, low edu. Level, literacy, decrease access to med. care, [facility], rehab)? @ -No Was there de-escalation of care discussed even if they declined (Discuss DNR or withdrawal of care, Hospice)? DNR status @ -No What co-morbidities impacted this encounter? (DM, HTN, Smoking, COPD, CAD, Cancer, CVA, ARF, Chemo, Hep., AIDS, mental health diagnosis, sleep apnea, morbid obesity)? @ -None Was patient admitted / discharged? Hospital course, mention meds given and route, prescriptions, significant lab abnormalities, going to OR and other pertinent info. @ -59-year-old female presenting with chief complaint of redness, irritation, foreign body sensation in the right eye that started today. Reports that she did get some debris in her eye earlier today while working on a machine at home. Patient does wear contact lenses as well. On exam there is some linear uptake seen on fluorescein examination. Patient does have relief with application of the proparacaine drops. Patient will be treated for corneal abrasion. Started on Cipro eyedrops and provided with ketorolac eyedrops for pain. Follow-up with PCP. Report back to ER with any new or worsening symptoms. Discussed return parameters and answered all questions. Patient conveyed verbal understanding and agreed to the plan. I discussed this case in detail with my attending Dr. Batista Undiagnosed new problem with uncertain prognosis? @ -No Drug Therapy requiring intensive monitoring for toxicity (Heparin, Nitro, Insulin, Cardizem)? @ -No Were any procedures done? @ -No Diagnosis/symptom? @ -Corneal abrasion Acute, or Chronic, or Acute on Chronic? @ -Acute Uncomplicated (without systemic symptoms) or Complicated (systemic symptoms)? @ -Uncomplicated Side effects of treatment? @ -No Exacerbation, Progression, or Severe Exacerbation? @ -No Poses a threat to life or bodily function? How? (Chest pain, [place], [place], pneumonia, PE, COPD, DKA, ARF, appy, cholecystitis, CVA, Diverticulitis, Homicidal, Suicidal, threat to staff... and all critical care pts) @ -Low likelihood Disposition Clinical Impression: Corneal abrasion Disposition: HOME SELF-CARE Condition: Good Instructions (If sedation given, give patient instructions): Corneal Abrasion (ED) Additional Instructions: Follow-up with PCP. Report back to ER with any new or worsening symptoms. Apply 2 Cipro eyedrops to the affected eye 4 times daily for 5 days You may apply 1 ketorolac eyedrop to the affected eye up to 3 times a day as needed for pain Is patient prescribed a controlled substance at d/c from ED?: No Referrals: None,Stated [Primary Care Provider] - 1-2 days Forms: [facility]Ps Time of Disposition: 00:56
[2024-05-08 00:59] VITALS: BP 100/68; PULSE 68; RESP 16
[2024-05-08] MEDS: KETOROLAC 0.5% OPHTH DROPS 5 ML BTL RIGHT EYE STA (01:34)
[2024-05-08] MEDS: CIPROFLOXACIN 0.3% OPHTH SOLN 5 ML BTL RIGHT EYE STA (01:35)
== END 2024-05-08 01:38 | disposition home or self-care (01) ==
LOC: EC 21:47
DX: S05.01XA Injury of conjunctiva and corneal abrasion without foreign body, right eye, initial encounter (principal); F17.200 Nicotine dependence, unspecified, uncomplicated; Z88.0 Allergy status to penicillin; X58.XXXA Exposure to other specified factors, initial encounter
CPT/HCPCS: 99283